=== PATIENT | male | born 1965 | race Caucasian/White ===

== ENCOUNTER → 2018-02-26 | Outpatient (CLI) | payer BC | END | disposition home or self-care (01) | LOC: KCIC MRI 10:34 | DX: M51.36 Other intervertebral disc degeneration, lumbar region (principal); R20.0 Anesthesia of skin | CPT/HCPCS: 72148 ==

== ENCOUNTER 2018-06-27 06:14 | Day surgery (SDC) | payer BC ==
[~2018-06-27] VITALS: Ht 172.7 cm; Wt 111.6 kg
[~2018-06-27 06:14] MED LIST: ACET-704 PO; ATOR20TA PO; BUPIVACAINE 0.5% 50 ML VIAL. ONE; CLINDAMYCIN 900MG PREMIX 50 ML IV ONE; LIDOCAINE 1% PF 30 ML VIAL. ONE; NAPR-514 PO; OLME40TA12 PO
[2018-06-27] MEDS ORDERED: LIDOCAINE 1% PF 2 ML VIAL. ID PRN (07:00)
[2018-06-27] MEDS ORDERED: MORPHINE SULFATE 2 MG/ML VIAL. IV PRN (07:00)
[2018-06-27] MEDS ORDERED: HYDROmorphone 2 MG/ML VIAL IV PRN (07:00)
[2018-06-27] MEDS ORDERED: PROCHLORPERAZINE 10 MG/2 ML VIAL. IV PRN (07:00)
[2018-06-27] MEDS ORDERED: ONDANSETRON PF 4 MG/2 ML VIAL. IV PRN (07:00)
[2018-06-27] MEDS ORDERED: IV RINGERS,LACTATED 1000ML 1,000 ML IV SCH (07:00)
[2018-06-27] MEDS ORDERED: fentaNYL PF VIAL 100 MCG/2 ML VIAL IV PRN ×2 (07:00)
--- NOTE | 2018-06-27 07:06 | DISCH ---
DISCHARGE INSTRUCTIONS Condition on Discharge Condition on Discharge: Stable Activity After Discharge Activity Instructions for Disc: Other, see below Bathing Instructions: Shower-keep dressing dry Weight Bearing Status after Di: Partial weight bearing Diet after Discharge Diet after Discharge: Regular Wound Incision Care Wound/Incision Care: Ice to area for comfort, Keep wound/cast CDI, Change dressing Contacting the [facility]RE[facility] after DC Call your doctor for: Concerns you may have Follow-Up Follow up with: Katie in 2wks Treatment/Equipment after DC Adaptive Equipment Issued: MERY Ritchie II, MD Jun 27, 2018 07:06
[2018-06-27] MEDS ORDERED: fentaNYL PF VIAL 250 MCG/5 ML VIAL ONE (07:20)
[2018-06-27] MEDS ORDERED: MIDAZOLAM HCL/PF 2 MG/2 ML VIAL. ONE (07:20)
[2018-06-27] MEDS ORDERED: PHENYLEPHRINE in 0.9% NACL PF 1 MG/10 ML SYRINGE. IV ONE (07:53)
[2018-06-27] MEDS ORDERED: ePHEDrine PF IN SALINE 50 MG/5 ML DISP.SYRIN IV ONE (07:57)
[2018-06-27] MEDS ORDERED: MORPHINE SULFATE 5 MG, KETOROLAC 30MG VIAL 30 MG, ROPIVacaine 0.5% PF 60 ML, EPINEPHrin... INT ART ONE ×5 (08:00)
[2018-06-27] MEDS ORDERED: PROPOFOL 20 ML IV ONE (08:28)
[2018-06-27] MEDS ORDERED: DEXAMETHASONE SOD PHOS 20 MG/5 ML VIAL. ONE (08:28)
[2018-06-27] MEDS ORDERED: ONDANSETRON PF 4 MG/2 ML VIAL. ONE (08:28)
--- NOTE | 2018-06-27 08:44 | PDOC4 ---
Operative Note Operative Note Date of procedure: 06/27/2018 Surgeon: Tom Bruce Preoperative diagnosis: Left hip avascular necrosis Postoperative diagnosis: Same Procedure performed: Core decompression left hip with 3.2 mm guide pin Anesthesia: Gen. Complications: None Blood loss: 5 mL Components inserted: None Reason for procedure: Patient is a very pleasant 52-year-old gentleman who had seen in consultation my outpatient clinic for left hip pain. Clinical and radiographic examination including MRI were consistent with the preoperative diagnosis and after discussion of the risks, benefits, and alternatives he elected to proceed with surgery. Description of procedure: Patient was greeted in the preoperative area by myself for the correct extremity was verified and marked. He was taken to the operative suite and his antibiotics started as he was brought back. Once in the operating room, he was transferred gently supine to the operating table and secured to the bed with all pressure points padded, right leg in a well-leg beltran, left leg in a traction ski boot, we used a padded perineal post, after successful induction of a general anesthetic. I then positioned his leg before imaging, no traction was used. We then proceeded to prep and drape left lower extremity and hip in our usual sterile fashion followed by our standard preoperative timeout. I then used C-arm to localize a starting point and trajectory for the pins. I then incised skin in accordance with this, approximately a 1-1/2-2 cm incision, I then spread bluntly down to bone. I then placed the guidepin against the femur and checked biplanar fluoroscopy and advanced the guide pin into the anterosuperior femoral head, in accordance with the area of his lesion, I had reviewed the MRI immediately preoperatively. I left this first guidepin in place and let it serve as a reference. I then advanced the guidepin and under biplanar fluoroscopic guidance to pass it through the lesion as well. I then left my second guidepin in place, withdrawing the first and repositioning it and using biplanar fluoroscopy for a third pass. After this, I removed the hardware and irrigated out the incision and wound area. I then closed subcutaneous tissues tissue with inverted interrupted 2-0 Vicryl followed by inverted interrupted 3-0 Monocryl in subcuticular fashion for the superficial closure. I then injected my local anesthetic mixture into the operative field. After this, the hip and leg were cleansed and dried and a sterile dressing was applied. All counts correct 2 prior wound closure. No complications. At the conclusion of the surgery, he was awakened from anesthesia and transferred gently supine to the hospital bed where he was then taken to PACU in a stable and x-ray condition. Postoperative plan is to be partial weightbearing with crutches for 6 weeks. I will see him back in my clinic in 2 weeks, sooner should a problem arise. He'll be discharged home today. TOM BRUCE II, MD Jun 27, 2018 08:44
[2018-06-27] MEDS ORDERED: oxyCODONE/APAP 5/325 1 TAB TABLET PO ONE (08:45)
[2018-06-27 09:25] VITALS: BP 118/74
== END 2018-06-27 09:25 | disposition home or self-care (01) ==
LOC: SURG 06:14
PROVIDERS: ATTEND Orthopaedic Surgery Sports Medicine
DX: M87.850 Other osteonecrosis, pelvis (principal); I10 Essential (primary) hypertension; E78.5 Hyperlipidemia, unspecified; K21.9 Gastro-esophageal reflux disease without esophagitis; E66.01 Morbid (severe) obesity due to excess calories; Z98.890 Other specified postprocedural states; F98.8 Other specified behavioral and emotional disorders with onset usually occurring in childhood and adolescence; F17.210 Nicotine dependence, cigarettes, uncomplicated; Z72.89 Other problems related to lifestyle; Z79.899 Other long term (current) drug therapy; Z88.0 Allergy status to penicillin; Z80.0 Family history of malignant neoplasm of digestive organs; Z68.37 Body mass index [BMI] 37.0-37.9, adult
CPT/HCPCS: 76000; A7015; C1887; J0171; J1100; J1885; J2250; J2270; J2370; J2405; J2704; J2795; J3010; J3490; S2325